=== PATIENT | female | born 1935 | race Asian ===

== ENCOUNTER 2018-03-11 07:06 | Day surgery (SDC) | payer OTHER ==
[~2018-03-11] VITALS: Ht 160 cm; Wt 52.8 kg
[2018-03-11] MEDS ORDERED: LOSARTAN (07:52)
[2018-03-11] MEDS ORDERED: PROPRANOLOL (07:52)
[2018-03-11 07:53] VITALS: Ht 160 cm; Wt 52.8 kg
[2018-03-11 08:00] VITALS: BP 183/86; PULSE 58; RESP 12
--- NOTE | 2018-03-11 08:17 | PREAC ---
Date/Time of Note Date/Time of Note DATE: 03/11/18 TIME: 08:15 Anesthesia Eval and Record Evaluation Time Pre-Procedure Interview DATE: 03/11/18 TIME: 08:15 Age 83 Sex female NPO: 8 hrs Preoperative diagnosis rectal cancer Planned procedure colonoscopy Past Medical History Past Medical History: Includes Cardio: HTN Surgery & Anesthesia Issues No known issue Meds Anticoagulation: No Beta [place] within 24 hr: Yes Reported Medications [Propranolol] No Conflict Check 03/11/18 [Losartan] No Conflict Check 03/11/18 Meds reviewed: Yes Allergies Coded Allergies: No Known Allergy (Unverified , 03/11/18) Allergies Reviewed: Yes Labs/Studies Labs Reviewed: Reviewed by anesthesiologist test: N/A Studies: ECG (n/a), CXR (n/a) Pre-procedure Exam Last vitals Vital Signs Date Temp Pulse Resp B/P (MAP) Pulse Ox O2 O2 Flow FiO2 Time Delivery Rate 03/11/18 98.3 58 12 183/86 98 Room Air 08:00 (118) Airway: Adequate mouth opening Mallampati: Mallampati I Teeth: Abnormal (brocken) Lung: Normal Heart: Normal ASA Physical Status ASA physical status: 2 Emergency: None Planned Anesthetic General/MAC: MAC Planned Pain Management Parenteral pain med Pre-operative Attestations Prior to commencing anesthesia and surgery, the patient was re-evaluated, there was verification of: *The patient's identity *The results of appropriate recent lab work and preoperative vital signs *The above evaluation not changing prior to induction *Anesthetic plan, risk benefits, alternative and complications discussed with patient/family; questions answered; patient/family understands, accepts and wishes to proceed. YARA PALENCIA MD Mar 11, 2018 08:17
[2018-03-11] MEDS ORDERED: PROPOFOL 20 ML ONE (08:28)
[2018-03-11] MEDS ORDERED: FENTAnyl 50 MCG/ML VIAL ONE (08:28)
--- NOTE | 2018-03-11 09:01 | PAC ---
Date/Time of Note Date/Time of Note DATE: 03/11/18 TIME: 09:01 Post-Anesthesia Notes Post-Anesthesia Note Last documented vital signs Vital Signs Date Temp Pulse Resp B/P (MAP) Pulse Ox O2 O2 Flow FiO2 Time Delivery Rate 03/11/18 98.3 58 12 183/86 98 Room Air 08:00 (118) Activity: WNL Respiratory function: WNL Cardiovascular function: WNL Mental status: Baseline Pain reasonably controlled: Yes Hydration appropriate: Yes Nausea/Vomiting absent: No YARA PALENCIA MD Mar 11, 2018 09:01
[2018-03-11 09:19] VITALS: BP 163/77; RESP 14
== END 2018-03-11 12:31 | disposition home or self-care (01) ==
LOC: GIL 07:06
PROVIDERS: ATTEND Internal Medicine Gastroenterology
DX: Z12.11 Encounter for screening for malignant neoplasm of colon (principal); K57.30 Diverticulosis of large intestine without perforation or abscess without bleeding; Z85.048 Personal history of other malignant neoplasm of rectum, rectosigmoid junction, and anus
CPT/HCPCS: 45380; 88305; J3010; Z7610